=== PATIENT | male | born 1995 | race American Indian/Alaskan Native ===

== ENCOUNTER 2021-08-25 20:30 | Emergency (ER) | payer SELFPAY ==
[2021-08-25 22:18] LABS: Basophils % (Auto) 0.2 % (0.0-1.8); Eosinophils % (Auto) 0.1 % (0.0-4.3); Hematocrit 49.2 % (35.5-45.6); Hemoglobin 16.3 gm/dl (11.8-15.2); Lymphocytes # (Auto) 0.9 K/mm3 (1.2-5.4); Lymphocytes % (Auto) 6.2 % (13.4-35.0); Mean Corpuscular HGB Conc 33 % (32-34); Mean Corpuscular Volume 86 fl (84-94); Monocytes # (Auto) 0.6 K/mm3 (0.0-0.8); Monocytes % (Auto) 4.3 % (0.0-7.3); Platelet Count 256 K/mm3 (140-440); Red Blood Count 5.71 M/mm3 (3.65-5.03)
[2021-08-25 22:22] LABS: Bilirubin,Urine NEG (Negative); Blood,Urine NEG (Negative); Color,Urine Straw (Yellow); Protein,Urine <15 mg/dL mg/dL (Negative); RBC,Urine < 1.0 /HPF (0.0-6.0); Urobilinogen,Urine < 2.0 mg/dL (<2.0)
[2021-08-25 22:24] LABS: WBC,Urine < 1.0 /HPF (0.0-6.0)
[2021-08-25 22:39] LABS: Alanine Aminotransferase 30 units/L (7-56); Albumin 4.9 g/dL (3.9-5); BUN/Creatinine Ratio 11; Blood Urea Nitrogen 10 mg/dL (9-20); Calcium 10.5 mg/dL (8.4-10.2); Hemolysis Index 8
[2021-08-26] MEDS ORDERED: ONDANSETRON 4 MG/2 ML INJ IV ONE (03:59)
[2021-08-26] MEDS ORDERED: SODIUM CHLORIDE 0.9% 1000 ML 1,000 ML IV ONE ×2 (03:59→04:01)
--- NOTE | 2021-08-26 04:22 | XRay Report ---
XR abdomen 1V ap INDICATION / CLINICAL INFORMATION: abd pain. COMPARISON: None available. FINDINGS: TUBES / LINES: None. BOWEL GAS PATTERN: No significant abnormality. FREE AIR / EXTRALUMINAL GAS: None seen. ADDITIONAL FINDINGS: No significant additional findings. IMPRESSION: 1. No significant abnormality. Signer Name: Jak Paris MD Signed: 08/26/2021 4:18 AM Workstation Name: [id number]
--- NOTE | 2021-08-26 05:15 | Emergency Department Report ---
ED General Adult HPI - General Chief complaint: Abdominal Pain Stated complaint: DIARRHEA/UPPER AB PAIN Time Seen by Provider: 08/26/21 03:58 Source: patient Mode of arrival: Ambulatory Limitations: No Limitations - History of Present Illness Initial comments: Patient is a 26-year-old male who presents for abdominal pain and constipation x3 days. Patient states 2 episodes of diarrhea yesterday. Pain is described at 5/10 cramping from back radiating to abdomen. Patient denies dysuria frequency or urgency. No hematuria. There is no history of renal stones or gallstones. Patient denies fevers or chills no malaise. - Related Data Previous Rx's Medication Instructions Recorded Last Taken Type bisacodyL [Dulcolax suppos] 10 mg [place] ONCE PRN #5 supp.rect 08/26/21 Unknown Rx metFORMIN [Glucophage] 500 mg PO BID #60 tab 08/26/21 Unknown Rx polyethylene glycoL 3350 [Miralax 17 gm PO BID PRN #14 packet 08/26/21 Unknown Rx 3350] Allergies Allergy/AdvReac Type Severity Reaction Status Date / Time No Known Allergies Allergy Verified 08/25/21 21:29 ED Review of Systems ROS: Stated complaint: DIARRHEA/UPPER AB PAIN Other details as noted in HPI Constitutional: chills Eyes: denies: eye pain, eye discharge, vision change ENT: congestion. denies: ear pain, throat pain Respiratory: denies: cough, shortness of breath, stridor, wheezing Cardiovascular: denies: chest pain, palpitations, dyspnea on exertion, orthopnea, syncope Endocrine: no symptoms reported Gastrointestinal: as per HPI, nausea. denies: abdominal pain, vomiting, diar arielle Genitourinary: denies: urgency, dysuria Musculoskeletal: as per HPI Skin: denies: rash, lesions Neurological: denies: headache, weakness, numbness, paresthesias, confusion, vertigo Psychiatric: denies: anxiety, depression Hematological/Lymphatic: denies: easy bleeding, easy bruising ED Past Medical Hx - Medications Home Medications: Home Medications Medication Instructions Recorded Confirmed Last Taken Type bisacodyL [Dulcolax suppos] 10 mg NJ ONCE PRN #5 supp.rect 08/26/21 Unknown Rx metFORMIN [Glucophage] 500 mg PO BID #60 tab 08/26/21 Unknown Rx polyethylene glycoL 3350 [Miralax 17 gm PO BID PRN #14 packet 08/26/21 Unknown Rx 3350] ED Physical Exam - General Limitations: No Limitations General appearance: alert, in no apparent distress - Head Head exam: Present: normocephalic - Eye Eye exam: Present: PERRL, EOMI. Absent: normal appearance, conjunctival injection, nystagmus Pupils: Present: normal accommodation - ENT ENT exam: Present: normal orophraynx, mucous membranes moist, TM's normal bilaterally, normal external ear exam - Neck Neck exam: Present: normal inspection, full ROM. Absent: tenderness, lymphadenopathy - Respiratory Respiratory exam: Present: normal lung sounds bilaterally. Absent: respiratory distress, wheezes, rales, rhonchi, stridor, chest wall tenderness, prolonged expiratory - Cardiovascular Cardiovascular Exam: Present: regular rate, normal rhythm, normal heart sounds. Absent: systolic murmur, diastolic murmur, rubs, gallop - GI/Abdominal GI/Abdominal exam: Present: soft, distended (Mild distention generalized no rebound no bruit no thrill), tenderness, normal bowel sounds. Absent: guarding, rebound, rigid, bruit, hernia - Rectal Rectal exam: Present: deferred - Extremities Exam Extremities exam: Present: normal inspection, full ROM, normal capillary refill - Back Exam Back exam: Present: normal inspection, full ROM. Absent: tenderness, CVA tenderness (R), CVA tenderness (L) - Neurological Exam Neurological exam: Present: alert, oriented X3, CN II-XII intact, normal gait - Psychiatric Psychiatric exam: Present: normal affect - Skin Skin exam: Present: warm, dry, intact, normal color. Absent: rash ED Course Vital Signs 08/25/21 21:02 Temperature 98.4 F Pulse Rate 92 H Respiratory 16 Rate Blood Pressure 158/81 O2 Sat by Pulse 99 Oximetry ED Medical Decision Making - Lab Data Result diagrams: 08/25/21 21:56 08/25/21 21:56 Labs 08/25/21 08/25/21 08/25/21 21:56 21:56 Unknown WBC 13.8 H RBC 5.71 H Hgb 16.3 H Hct 49.2 H MCV 86 MCH 29 MCHC 33 RDW 13.0 L Plt Count 256 Lymph % (Auto) 6.2 L Rich % (Auto) 4.3 Eos % (Auto) 0.1 Baso % (Auto) 0.2 Lymph # (Auto) 0.9 L Rich # (Auto) 0.6 Eos # (Auto) 0.0 Baso # (Auto) 0.0 Seg Neutrophils % 89.2 H Seg Neutrophils # 12.3 H Sodium 137 Potassium 5.0 Chloride 93.5 L Carbon Dioxide 24 Anion Gap 25 BUN 10 Creatinine 0.9 Estimated GFR > 60 BUN/Creatinine Ratio 11 Glucose 391 H Calcium 10.5 H Total Bilirubin 0.70 AST 20 ALT 30 Alkaline Phosphatase 77 Total Protein 8.8 H Albumin 4.9 Albumin/Globulin Ratio 1.3 Urine Color Straw Urine Turbidity Clear Urine pH 6.0 Ur Specific [place] 1.025 Urine Protein <15 mg/dl Urine Glucose (UA) >=500 Urine Ketones 80 Urine Blood Neg Urine Nitrite Neg Urine Bilirubin Neg Urine Urobilinogen < 2.0 Ur Leukocyte Esterase Neg Urine WBC (Auto) < 1.0 Urine RBC (Auto) < 1.0 U Epithel Cells (Auto) < 1.0 - Radiology Data Radiology results: report reviewed, image reviewed XR abdomen 1V ap INDICATION / CLINICAL INFORMATION: abd pain. COMPARISON: None available. FINDINGS: TUBES / LINES: None. BOWEL GAS PATTERN: No significant abnormality. FREE AIR / EXTRALUMINAL GAS: None seen. ADDITIONAL FINDINGS: No significant additional findings. IMPRESSION: 1. No significant abnormality. Signer Name: Arnold Carreno MD Signed: 08/26/2021 4:18 AM Workstation Name: [id number] Transcribed By: JS Dictated By: ARNOLD CARRENO MD Electronically Authenticated By: ARNOLD CARRENO MD Signed Date/Time: 08/26/21417 DD/ 6 TD/TT: - Medical Decision Making KUB normal gas pattern, consistant with report constipation, labs noted as above, Glucose: 321 mg/dl , pt tx'd with NS x 2 liters iv, and regular insulin 7 units SQ, Pt advises symptoms are much improved, plan: d/c to home with rx, follow up with primary care for DM II management, ED: Diagnosis constipation, abdominal pain. pt verbalized agreement and understanding of discharge plan. Critical care attestation.: If time is entered above; I have spent that time in minutes in the direct care of this critically ill patient, excluding procedure time. ED Disposition Clinical Impression: Hyperglycemia Constipation Qualifiers: Constipation type: unspecified constipation type Qualified Code(s): K59.00 - Constipation, unspecified Abdominal pain Qualifiers: Abdominal location: generalized Qualified Code(s): R10.84 - Generalized abdominal pain Disposition: HOME / SELF CARE / HOMELESS Is pt being admited?: No Does the pt Need Aspirin: No Condition: Stable Instructions: Constipation, Adult, [id number], Hyperglycemia, [id number], Abdominal Pain, Adult, [id number], Diabetes Mellitus and Nutrition, Adult Additional Instructions: Take medications as prescribed, follow-up with primary care doctor in 1 to 2 days. Hydrate as directed. Return to emergency department should symptoms worsen. Prescriptions: bisacodyL [Dulcolax suppos] 10 mg NJ ONCE PRN #5 supp.rect PRN Reason: Constipation metFORMIN [Glucophage] 500 mg PO BID #60 tab polyethylene glycoL 3350 [Miralax 3350] 17 gm PO BID PRN #14 packet PRN Reason: Constipation Referrals: JOSÉ NAVA MD [Staff Physician] - 3-5 Days Forms: Work/School Release Form(ED) Time of Disposition: 06:26
[2021-08-26] MEDS ORDERED: INSULIN REGULAR, HUMAN 100 UNITS/1 ML SUB-Q ONE (06:16)
[2021-08-26 07:00] VITALS: BP 152/76
== END 2021-08-26 07:00 | disposition home or self-care (01) ==
LOC: ED 20:30
DX: R73.9 Hyperglycemia, unspecified (principal); K59.00 Constipation, unspecified; R10.84 Generalized abdominal pain
CPT/HCPCS: 36415; 74018; 80053; 81001; 82962; 85025; 96361; 96372; 96374; 99284; J2405; J7030; Q9967; J1815